=== PATIENT | female | born 1950 | race Caucasian/White ===

== ENCOUNTER 2019-07-26 16:17 | Inpatient (IN) ==
[2019-07-26] MEDS ORDERED: ZOFRAN IV PRN (16:44)
[2019-07-26] MEDS ORDERED: TYLENOL PO PRN (16:44)
[2019-07-26] MEDS ORDERED: NS 1,000 ML IV SCH (17:00)
--- NOTE | 2019-07-26 17:48 | HISTORY AND PHYSICAL ---
CHIEF COMPLAINT: Worsening renal insufficiency. HISTORY OF PRESENT ILLNESS: The patient is a 68-year-old, white female followed in my medical practice. She had been hospitalized in [place], [place] on 07/14/2019 to 07/15/2019. Creatinine while she was in the hospital there was 1.[address] Gomez has followed that up, and it has gone up to 2.2. There has been no history of nausea or vomiting or diarrhea. She appeared adequately hydrated in Dr. Gomez's office. The patient had been hospitalized in [place], [place] as she was visiting there and resided in a [facility] for a few days. She began having some pain about her left shoulder, left axilla, left chest, left subscapular area. She was evaluated and also noted to have a fever up to 101. She did not have Covid testing but was admitted to the hospital and noted her iron was very low and her hemoglobin was 7.4. She refused blood transfusion at that time but did receive an iron infusion and was seen by the door and arrival attendant at [place], [place]. She is followed by Dr. Redd Petersen here in regard to her cardiac care. MEDICATIONS: Prior to admission are Diovan 320 mg p.o. daily, Eliquis 5 mg p.o. b.i.d., hydralazine 50 mg p.o. b.i.d., clonidine 0.2 mg p.o. b.i.d., allopurinol 300 mg p.o. daily, fiber supplement daily, multivitamin daily, Zyrtec 10 mg daily, Pepcid p.r.n. ALLERGIES: Penicillin. PERICO inhibitor had caused angioedema in June of 2018, as did Norvasc. PAST MEDICAL HISTORY: 1. Hypertension diagnosed March 2002. 2. Mild MR diagnosed April 2002. 3. Atrial fibrillation with ablation treatment in the last 5 years. 4. Multiple myeloma diagnosed August [address] Gomez. 5. Diverticulosis. PAST SURGICAL HISTORY: 1. Appendectomy in 1956. 2. Right carpal tunnel surgery release September 2007. 3. Right TKR 2007. 4. Left TKR September 2008. 5. History of splenomegaly. IMMUNIZATIONS: Pneumovax 23 given April 2017. Tetanus immunization in August 2016. Zostavax 11/18/2010. Prevnar 08 May 2015. Last influenza vaccination December 2018. FAMILY HISTORY: Notable for CHF in her brother, hypertension in 2 brothers. No MIs or diabetes in the family. Stroke in her grandfather at age 96. No cancer in the family. Brother with dementia. Two brothers with pacemakers. SOCIAL HISTORY: The patient lives in [place]. She is and has 2 children. She is retired from the [employer] here in town. She is a lifelong nonsmoker. Drinks about 3 glasses of wine every other day. REVIEW OF SYSTEMS: Negative except as above. Last colonoscopy March [address] Miranda. She is followed for [employer]PER[employer]OR care per Dr. Chavez. Echocardiogram done per Dr. Petersen 03/29/2019 revealed mild TR, trace pulmonic insufficiency, mild left atrial enlargement, mild MR, mild left ventricular hypertrophy, EF of 65%, possible membrane at the left ventricular outflow tract. PLAN: PHYSICAL EXAMINATION: VITAL SIGNS: See chart. GENERAL: Mildly obese, white female. SKIN: Rare bruises on forearms primarily. HEENT: PERRL, EOMI. Sclerae clear. OP: No redness. Tongue in the midline. NECK: No LA, TMG, JVD, or bruits. CV: RRR with 3/6 murmur. LUNGS: CTA. BACK: NT. ABDOMEN: Soft, NT, ND. No mass. No HSM but again, abdomen is large. BREASTS/PELVIC/RECTAL: Deferred. EXTREMITIES: No calf tenderness, cords, or edema. NEUROLOGIC: Cranial nerves 2-12 are intact and nonfocal. ASSESSMENT: 1. Acute kidney injury with creatinine being normal at 0.7 to 0.9 within the past 4 to 6 months. 2. Pronounced iron deficiency anemia. 3. Hypertension. 4. Mild mitral regurgitation. 5. History of atrial fibrillation, status post ablation therapy. 6. Multiple myeloma, followed by Dr. Gomez. 7. History of diverticulosis. PLAN: I spoke with Dr. Gomez and as her kidney function is worse, we will admit the patient. Leave her off her ARB and hydrate her gently with normal saline. Concern would be that the ARB is affecting her renal function or that the multiple myeloma is progressing and causing renal insufficiency. We will continue her other home medications. We will check iron studies, B12, folic acid level, type and screen the patient, monitor her CBC, CMP, and check proBNP and chest x- ray, and monitor for CHF, especially in light of the hydration that will be needed. We will also check bilateral renal ultrasound. cc: Gerber Venegas MD
[2019-07-26 18:44] LABS: BASO# 0.02 X1000 (0.0-0.2); BASO% 0.3 % (0.0-0.8); EOS# 0.07 X1000 (0.0-0.7); EOS% 1.2 % (0.0-10.0); HEMATOCRIT 23.2 % (37.0-47.0); LYMPH# 0.64 X1000 (1.2-3.4); LYMPH% 11.2 % (20.5-51.1); MCH 29.2 PG (27-31); MCHC 30.2 g/dL (33-37); MCV 96.7 FL (81-99); MONO# 0.22 X1000 (0.11-0.59); MONO% 3.8 % (1.7-9.3); MPV 10.6 FL (7.4-10.4); NEUT# 4.78 X1000 (1.4-6.5); NEUT% 83.5 % (42.2-75.2); PLT 233 X1000 (130-400); RDW 15.4 % (11.5-14.5); WBC 5.73 X1000 (4.8-10.8)
[2019-07-26 18:46] LABS: RETIC% 2.73 % (0.8-2.1); RETIC-HE 34.2 PG (28.2-36.6)
[2019-07-26 18:52] LABS: ALB/GLOB RATIO 1.5; ALBUMIN 3.8 g/dL (3.5-5.0); CALCIUM 9.3 mg/dL (8.8-10.2); CREATININE 2.5 mg/dL (0.5-0.9); POTASSIUM 4.2 mmol/L (3.5-5.1); TOTAL BILIRUBIN 0.56 mg/dL (0.20-1.00); TOTAL PROTEIN 6.3 g/dL (6.3-8.3)
--- NOTE | 2019-07-26 18:58 | Diag Imaging Result Doc PS360 ---
EXAM: CHEST-2 VIEWS INDICATION: nori TECHNIQUE: 2 views COMPARISON: 09/14/2017 FINDINGS: The lungs are grossly clear. There is no discrete pleural fluid collection or pneumothorax. The heart is mildly prominent but stable. Central vasculature is unremarkable. IMPRESSION: Stable mildly prominent heart. No definite acute chest pathology by plain radiograph. Electronically signed by Cuauhtemoc Be 07/26/2019 6:56 PM
[2019-07-26] MEDS ORDERED: SODIUM CHLORIDE 0.9% INJ ONE (20:00)
[2019-07-26] MEDS ORDERED: PEPCID IV ONE (20:00)
[2019-07-26] MEDS ORDERED: DECADRON 40 MG in NS 50 ML IV ONE (20:00)
[2019-07-26 20:02] LABS: FREE T4 1.12 ng/dL (0.93-1.70); TSH 2.24 uIUmL (0.27-4.20)
[2019-07-26 20:16] LABS: URINE SOURCE CLEAN CATCH
[2019-07-26 20:23] LABS: BILIRUBIN URINE NEGATIVE (NEGATIVE); BLOOD URINE MODERATE (NEGATIVE); COLOR ORANGE; GLUCOSE URINE NEGATIVE (NEGATIVE); KETONE URINE NEGATIVE (NEGATIVE); LEUKOCYTES URINE NEGATIVE (NEGATIVE); NITRITE URINE NEGATIVE (NEGATIVE); PROTEIN URINE 100 mg/dL (NEGATIVE); SP GRAVITY URINE 1.013; TURBIDITY URINE HAZY (CLEAR); UROBILINOGEN URINE NORMAL (NORMAL)
[2019-07-26 20:24] LABS: UR EPITHELIAL CELLS <10 /HPF (<10); URINE BACTERIA NEGATIVE /HPF; URINE RBC TNTC /HPF (<10); URINE WBC <10 /HPF (<10)
[2019-07-26] MEDS: CATAPRES PO SCH (21:16)
[2019-07-26] MEDS: APRESOLINE PO SCH (21:16)
[2019-07-26] MEDS: ELIQUIS PO SCH (21:17)
[2019-07-26] MEDS: FERROUS SULFATE PO SCH (21:17)
[2019-07-26] MEDS ORDERED: BENADRYL IV PRN (22:06)
[2019-07-27] MEDS: NS 1,000 ML IV SCH ×2 (02:10→09:26)
[2019-07-27] MEDS: APRESOLINE PO SCH ×3 (08:56→16:46)
[2019-07-27] MEDS: ELIQUIS PO SCH (08:56)
[2019-07-27] MEDS: ZYLOPRIM PO SCH ×2 (08:56→09:06)
[2019-07-27] MEDS: FERROUS SULFATE PO SCH ×2 (08:56→21:36)
[2019-07-27] MEDS: CATAPRES PO SCH ×2 (08:56→21:36)
[2019-07-27] MEDS: FIBERCON PO SCH (08:57)
[2019-07-27] MEDS ORDERED: MULTI-VITAMIN PO SCH (09:00)
--- NOTE | 2019-07-27 11:13 | NEPHROLOGY CONSULTATION ---
DATE: 07/27/2019 REASON FOR CONSULTATION: Acute kidney injury. HISTORY OF PRESENT ILLNESS: Ms. Nguyen is a 68-year-old white female, with a history of smoldering myeloma, as well as hypertension and osteoarthritis. She also has atrial fibrillation and gout. She was in [place] in mid June when she was awakened with left chest pain and left arm pain. She went to the hospital where she was evaluated and was told that it was not cardiac in origin. There was no mention of her kidneys at the time and after several tests she was discharged. She spent one more week in [place] and then came back to [place]. She was told while she was there that she was anemic and needed a transfusion. She deferred this until she returned home. She saw Dr. Venegas as well as Dr. Gomez, and her testing on both occasions disclosed abnormal kidney function so she was admitted to the hospital for transfusion and IV fluids. Otherwise, she states she feels well. Her appetite is good. No nausea or vomiting. No chest pain palpitation shortness of breath fevers, chills, abdominal discomfort, diarrhea etc. No new rashes. No new arthralgias. No new neurologic symptoms, etc. No change in her urinary color or character. No new voiding symptoms. PAST MEDICAL HISTORY: As above. HOME MEDICATIONS: Valsartan, apixaban, hydralazine, allopurinol, clonidine, and iron. These are the medicines listed, however, she only admits to taking clonidine, iron, and apixaban. ALLERGIES: Lisinopril. SOCIAL HISTORY: Recent travel to [place] as above, [place]. No tobacco. Regular alcohol use that is moderate in degree. FAMILY HISTORY: Noncontributory. REVIEW OF SYSTEMS: Noncontributory. She does relate lip swelling that led to her listed allergy of lisinopril. She has had 2 episodes in the last several days which involved the upper lip. No tongue swelling, no wheezing or shortness of breath. OBJECTIVE: Vital Signs: Blood pressure 149/63, heart rate 53, respirations 20, afebrile. General: Healthy-appearing woman lying in bed at 45 degrees. No acute distress. Skin: Warm and dry. HEENT: Conjunctivae are pink. Pupils are equal. Oropharynx is clear. Normal tongue. Normal teeth. Neck: Supple. Trachea is midline. No neck vein distention. Heart: PMI nondisplaced. Regular rate and rhythm, with a coarse murmur, loudest at the apex but audible across the precordium. Lungs: The lungs have equal breath sounds. No crackles or wheezes. Abdomen: Soft, nontender. Bowel sounds present. No organomegaly, masses or bruits. Extremities: No edema, clubbing or cyanosis. IMPRESSION: Abnormal kidney function. This is a new finding. I agree with IV fluid resuscitation and reassessment. Serum and urine electrophoresis. Spot urine sodium and protein. Renal ultrasound. I will hold her apixaban in anticipation of possible kidney biopsy next week. cc: MD Gerber Hernadez MD
[2019-07-27 11:41] LABS: CREATININE 2.4 mg/dL (0.5-0.9)
--- NOTE | 2019-07-27 12:14 | HEMO/ONC CONSULTATION ---
DATE: 07/27/2019 REASON FOR CONSULTATION: This is a known patient of ours for multiple myeloma. HISTORY OF PRESENT ILLNESS: Ms. Nguyen is a 68-year-old female whom we have followed in our practice for a few years now regarding multiple myeloma. The patient was seen in clinic yesterday and noted to have a significant drop in her hemoglobin to 7.2 and hematocrit 21.8. It was also found that the patient's creatinine had significantly increased to 2.22. The patient has no history of recent dehydration, nausea, vomiting, diarrhea illness or any other new symptoms. She does state that she was recently out of town in [place], [place], and was hospitalized there for chest pain in mid June. It was noted that her creatinine was elevated at that time to 1.72. The patient this morning denies any pain. She states she feels a lot better than she did yesterday. She is receiving a blood transfusion this morning. She denies any shortness of breath or chest pains or weakness. She is hoping to be discharged by the weekend. In the clinic we follow the patient for multiple myeloma with chronic leukopenia and mild neutropenia. Most recently, the patient's anemia has been worsening. She is status post 2 doses of IV iron the first of May. The patient has also had a recent GI workup by Dr. Miranda in February 2019. She also had a bone marrow biopsy in January 2019, but that did not show any evidence of MDS. PAST MEDICAL HISTORY: Hypertension, atrial fibrillation with ablation, multiple myeloma, diverticulosis. PAST SURGICAL HISTORY: Appendectomy in 1956, right carpal tunnel release surgery in September 2007, right TKR 2007, left TKR September 2008, history of splenomegaly. SOCIAL HISTORY: The patient denies tobacco, regular alcohol use that is in moderate degree. MEDICATIONS: Diovan, Eliquis, hydralazine, clonidine, allopurinol, daily fiber supplement, multivitamin, Zyrtec, and Pepcid p.r.n. ALLERGIES: Penicillin; PERICO inhibitors, which caused angioedema, as did Norvasc. REVIEW OF SYSTEMS: Pertinent positives mentioned above. PHYSICAL EXAMINATION: Vital Signs: Temperature 98 degrees, pulse rate 51, respiratory rate 20, blood pressure 106/45, and O2 saturation 97% on room air. General: On physical exam, the patient is in no acute distress. HEENT: Sclerae anicteric. PERRLA. Oral mucosa is normal. Cardiovascular: Normal S1 and S2. Heart rate and rhythm regular. She is bradycardic. Respiratory: Lung sounds are clear to auscultation. Normal respiratory effort. Abdomen: Soft, nontender. Bowel sounds present. Extremities: No lower extremity edema noted. ASSESSMENT: 1. Acute kidney injury with creatinine being normal at 0.7 in the last 4 to 6 months. 2. Pronounced iron deficiency anemia. 3. Multiple myeloma. PLAN: 1. We are concerned about her worsening kidney function. It could be the ARB effecting her renal function or it could be progression of multiple myeloma causing renal insufficiency. We will continue to monitor her labs daily. Continue gentle hydration. Agree with nephrology consult. We will continue to monitor closely. 2. Deep venous thrombosis prophylaxis: Be sure the patient has on sequential compression devices. Allow her to get up out of bed as needed. Dictated by ZAFAR Laureano for Ananda Gomez MD cc: MD Gerber Aguilar MD MTDD
--- NOTE | 2019-07-27 13:32 | PROGRESS NOTE ---
DATE: 07/27/2019 SUBJECTIVE: The patient is alert and conversant. No specific complaints. OBJECTIVE: Vitals: Afebrile, pulse 51, respirations 20, blood pressure 106/45, O2 saturation 97% on room air. CV: Irregularly, irregular with a 3/6 murmur. Lungs: CTA. Abdomen: Nontender. Extremities: No calf tenderness, cords or edema. Neurologic: Cranial nerves are intact. No focal deficits. IMAGING AND LABORATORY DATA: White count of 5.7, hemoglobin is 7.0, platelets 233,000. Sedimentation rate 60, ferritin 346. ProBNP 2,351. PFTs normal. Folate 9.6, B12 691. Iron level was low at 19, TIBC 236. AST and ALT are 13 and 8 respectively. Today's BMP shows sodium 131, potassium 4.0, chloride 99, CO2 20, BUN 46, creatinine 2.4, which is stable. Calcium 8.0. Urinalysis, too numerous to count RBCs, less than 10 WBCs, negative leukocytes, blood moderate. IgA immunoglobulins is low at 45, IgG immunoglobulins low at 623, IgM 232; this is from serum. ASSESSMENT: 1. Acute kidney injury. 2. Pronounced iron-deficiency anemia. 3. Multiple myeloma, followed by Dr. Gomez. 4. Hypertension. 5. Mild angioedema, episodic, possibly related to ARB. 6. Mild mitral regurgitation. 7. Paroxysmal atrial fibrillation, status post ablation remotely. 8. Diverticulosis. PLAN: Lisette Connelly is leaving her off her Eliquis due to possible need for kidney biopsy. Continue IV hydration. She had, had some mild angioedema type symptoms. She is on Benadryl p.r.n. for that. We had stopped the Diovan. She is doing okay in regard to her blood pressure, on clonidine and hydralazine. She had received steroids x1 dose per Oncology. She is on iron b.i.d. She had received 2 units PRBCs transfused, and we will reassess her CBC and BMP in the morning. Renal ultrasound has been ordered. We will apply pneumatic compression hose. cc: Gerber Venegas MD
--- NOTE | 2019-07-27 14:30 | Diag Imaging Result Doc PS360 ---
EXAM: US RENAL 2 (RETROPER) COMPLETE HISTORY: nori/arf TECHNIQUE: Renal ultrasound COMPARISON: None. FINDINGS: The right kidney measures 12.2 x 4.3 x 4.8 cm. Mild increased renal echotexture. Normal cortical thickness. No renal mass. No stones or hydronephrosis. The left kidney measures 12.2 x 4.6 x 4.2 cm. Mild increased renal echotexture. Normal cortical thickness. There are scattered renal cysts. The largest measures 3.0 cm. No stones or hydronephrosis. IMPRESSION: Increased renal echotexture consistent with medical renal disease. Electronically signed by Farhad Valadez 07/27/2019 2:28 PM
[2019-07-28] MEDS: NS 1,000 ML IV SCH ×3 (02:52→08:52)
[2019-07-28 07:03] LABS: HEMATOCRIT 25.8 % (37.0-47.0); HEMOGLOBIN 8.2 g/dL (12.0-16.0); LYMPH# 0.78 X1000 (1.2-3.4); LYMPH% 11.4 % (20.5-51.1); MCH 29.5 PG (27-31); MCHC 31.8 g/dL (33-37); MCV 92.8 FL (81-99); MONO# 0.31 X1000 (0.11-0.59); MONO% 4.5 % (1.7-9.3); MPV 10.8 FL (7.4-10.4); NEUT# 5.74 X1000 (1.4-6.5); NEUT% 84.1 % (42.2-75.2); PLT 204 X1000 (130-400); RBC 2.78 XMIL (4.2-5.4); RDW 15.1 % (11.5-14.5); WBC 6.83 X1000 (4.8-10.8)
[2019-07-28 07:18] LABS: CALCIUM 7.7 mg/dL (8.8-10.2); CREATININE 2.4 mg/dL (0.5-0.9); POTASSIUM 3.9 mmol/L (3.5-5.1)
[2019-07-28] MEDS: FIBERCON PO SCH (08:52)
[2019-07-28] MEDS: CATAPRES PO SCH (08:53)
[2019-07-28] MEDS: FERROUS SULFATE PO SCH (08:53)
[2019-07-28] MEDS: APRESOLINE PO SCH ×2 (08:53→13:59)
[2019-07-28] MEDS ORDERED: THERA M PLUS PO SCH (09:00)
[2019-07-28] MEDS ORDERED: NS 1,000 ML IV SCH (10:52)
--- NOTE | 2019-07-28 11:12 | HEMO/ONC PROGRESS NOTE ---
DATE: 07/28/2019 SUBJECTIVE: Ms. Nguyen was sitting up in bed eating breakfast. She states that she feels fine today. She has no complaints of pain or not feeling well. She is hoping that she can go home for the weekend, and come back for possible kidney biopsy. OBJECTIVE: Vital Signs: Temperature 97.6 degrees, pulse rate 44, respiratory rate 18, blood pressure 141/61, O2 saturation 99% on room air. She is in 0/10 pain. General: On physical examination, the patient is in no acute distress. Respiratory: Lung sounds are clear to auscultation. Normal respiratory effort. Cardiovascular: Irregular rhythm, bradycardic. Extremities: No lower extremity edema noted. Neurological: A and O x3. No focal motor deficits noted. LABORATORY: WBCs 6.83, hemoglobin 8.2, hematocrit 25.8, platelet count 204,000. Sodium 136, potassium 3.9. BUN 47, creatinine 2.4, calcium 7.7. ASSESSMENT: 1. Acute kidney injury. 2. Pronounced iron deficiency anemia. 3. Multiple myeloma. PLAN: The patient is status post 2 units packed red blood cells. We should see an improvement in the patient's anemia. Dr. Connelly is wanting to do a kidney biopsy on Wednesday. The patient is hoping that she can go home today if it is safe, and return on Wednesday as an outpatient. Continue gentle hydration. We are continuing to monitor her labs. Continue DVT prophylaxis. We will monitor peripherally over the weekend. Please call us if needed. Dictated by ZAFAR Laureano for Ananda Gomez MD cc: MD Gerber Aguilar MD
--- NOTE | 2019-07-28 11:19 | PROGRESS NOTE ---
DATE: 07/28/2019 SUBJECTIVE: Patient generally feeling well. Denies shortness of breath. OBJECTIVE: Vital Signs: Afebrile, pulse 44, respirations 18, blood pressure 141/61, O2 saturation on room air 97 to 99 percent. CV: RRR with 3/6 murmur. Lungs: Clear. Extremities: No major edema. Abdomen: Nontender. Neurologic: Cranial nerves intact. Nonfocal. LABS: White count 6.8, hemoglobin up to 8.2 status post 2 units PRBCs transfused, platelets 204. Sodium 136, potassium 3.9, chloride 106, CO2 of 19. BUN 47, creatinine 2.4, calcium 7.7. Urine immunoglobulins revealed kappa light chains 173 markedly elevated, free lambda light chains 2.12 within normal limits. [place] and lambda FLC ratio 81.6, markedly elevated. ASSESSMENT: 1. Acute kidney injury. 2. Pronounced iron deficiency anemia, improved after 2 units packed red blood cells transfused. 3. Multiple myeloma followed by Dr. Gomez. 4. Hypertension. 5. Mild angioedema, episodic. 6. Mild mitral regurgitation. 7. Paroxysmal atrial fibrillation off of Eliquis currently due to upcoming renal biopsy planned for next week. 8. Diverticulosis. PLAN: Reduce IV fluids slightly. Continue moderate hydration. We are leaving her off of her ARB, and have increased her hydralazine to t.i.d. while continuing her clonidine. Blood pressure is reasonable at this point in that regard. Dr. Connelly and Dr. Gomez continue to follow the patient. May be able to discharge the patient home, and have the outpatient renal biopsy next week if deemed appropriate per Dr. Connelly. cc: Gerber Venegas MD
[2019-07-28 11:53] VITALS: BP 134/56
[2019-07-28 14:44] LABS: UR CREAT RANDOM 44.9 mg/dL (11-20)
--- NOTE | 2019-07-28 16:59 | NEPHROLOGY PROGRESS NOTE ---
DATE: 07/28/2019 SUBJECTIVE: She is feeling fine this afternoon. No shortness of breath, nausea or vomiting. OBJECTIVE: Vital Signs: Blood pressure 134/56, heart rate 43, respiration 19. Afebrile. IMPRESSION: Renal failure. New in onset. Not improved with IV fluids. Electrolytes are in target. Modest metabolic acidosis. PLAN: I discussed the case directly with Drs. Venegas and Jason. We will plan for kidney biopsy on Wednesday to help define whether she needs treatment for her myeloma. cc: MD Gerber Hernadez MD
--- NOTE | 2019-08-02 16:03 | DISCHARGE SUMMARY ---
ADMISSION DATE: 07/26/2019 DISCHARGE DATE: 07/28/2019 DIAGNOSES: 1. Acute kidney injury. 2. Pronounced iron deficiency anemia, improved after 2 units packed red blood cells transfused. 3. Multiple myeloma, followed by Dr. Gomez. 4. Hypertension. 5. Mild episodic angioedema, worsened possibly by angiotensin receptor megan. 6. Mild mitral regurgitation. 7. Paroxysmal atrial fibrillation, off Eliquis at discharge due to upcoming renal biopsy planned for next week per Dr. Connelly. 8. Diverticulosis. 9. History of gout. CONSULTANTS: 1. Dr. Connelly, punch press operator. 2. Ananda Gomez MD, Hematology/Oncology. PROCEDURES: Chest x-ray done on admission showing stable mildly prominent heart, otherwise negative. Renal ultrasound revealing increased renal echotexture consistent with medical renal disease. REASON FOR ADMISSION AND HOSPITAL COURSE: The patient is a 68-year-old, white female followed in my medical practice. She suffers from multiple myeloma, but has not required treatment but is followed by Dr. Gomez. She had a normal creatinine 6 months ago, but creatinine had risen at a recent hospitalization where she was found to have anemia while she was hospitalized in [place], [place] from 07/14/2019 to 07/15/2019. She was COVID tested and was negative there. She did not require transfusion, although it was recommended she refused transfusion at that time. She did receive iron transfusion. Creatinine at the hospital there in [place] was 1.72 and she followed up with Dr. Gomez and myself and her hemoglobin stabilized in the 7.4 to 8 range as outpatient. She was re-evaluated by Dr. Gomez and her creatinine viri to 2.2 and her hemoglobin had dropped slightly. The patient has been on Diovan 320 mg daily, Eliquis 5 mg b.i.d., hydralazine 50 mg b.i.d., clonidine 0.2 mg b.i.d., allopurinol 300 mg daily, fiber supplement daily, MVI daily. Zyrtec 10 daily, Pepcid p.r.n. She does suffer from the multiple myeloma and there is concern that the multiple myeloma may be affecting her renal function or that the ARB may be somewhat adversely affecting her renal function. The patient was admitted and her hemoglobin was noted to be lower at 7.0 and she received 2 units of PRBCs transfused in the hospital and her hemoglobin viri to 8.2, platelets were 204,000, white count 6.83. Sedimentation rate 60. SPEP showed hypogammaglobulinemia. No monoclonal band. B12 691, folate 9.2, TSH 2.24, free T4 1.12. CMP unremarkable. Iron low at 19, TIBC 236, percent saturation 8, ferritin 346, ProBNP 2,351. Urinalysis, moderate blood, too numerous to count RBCs, less than 10 WBCs, negative bacteria, negative leukocytes. Serum immunoglobulins showed low IgA at 45, IgG level at 623, IgM 232, minimally elevated. Free light chain immunoglobulins show S chain kappa free light 173, which is markedly elevated. Light chain, free lambda 2.12, normal. [place] to lambda FLC ratio 81.6. Monoclonal kappa noted suggesting serum monoclonal protein elevation. The patient did well. Creatinine stayed stable at around 2.5, and she was able to be discharged. Dr. Connelly saw the patient and we stopped her ARB due to some episodic angioedema, minimal, and due to the decrease in renal function. Blood pressure did well on her remaining blood pressure agents. Allopurinol was stopped. The patient was taken off her Eliquis per Dr. Connelly in preparation for renal biopsy, which was planned next week as outpatient. cc: Gerber Venegas MD
== END 2019-07-28 16:40 | disposition home or self-care (01) | DRG 683 ==
LOC: DIRADM 16:17 → 3N 17:20
PROVIDERS: ADMIT Family Medicine; ATTEND Family Medicine